=== PATIENT | male | born 1990 | race Caucasian/White ===

== ENCOUNTER 2017-07-29 09:37 | Emergency (ER) | payer SELFPAY ==
[~2017-07-29] VITALS: Ht 157.5 cm; Wt 72.7 kg
[2017-07-29 09:47] VITALS: Ht 157.5 cm; Wt 72.7 kg
[2017-07-29 11:36] VITALS: BP 121/69
== END 2017-07-29 11:36 | disposition home or self-care (01) ==
LOC: ED 09:37
DX: G51.0 Bell's palsy (principal)
CPT/HCPCS: J1885